=== PATIENT | female | born 1955 | race Caucasian/White ===

== ENCOUNTER → 2016-08-26 | Outpatient (CLI) | payer BC ==
[~2016-08-26] MED LIST: ASPIRIN81 M2 PO; ATORVASTATIN CA10 MG PO; B COMPLEX1 TAB.SA PO; EFFIENT10 MG PO; LEVOTHYROXINE50 MCG PO; LOSARTAN POTASS25 MG PO; MOBIC15 MG PO; NITROSTAT0.4 MG SL; SYNTHROID75 MCG PO; TENORMIN50 MG PO; VIT E PO; VITAMIN D2000 UNIT PO
--- NOTE | ~2016-08-26 | US5 ---
[facility] A Service [facility] RADIOLOGY TEXT RESULTS PATIENT: SHANNAN GUTIERREZ LOCATION: [facility] : 51 UNIT #: [id number] AGE: [address]: BUNNY MCNEILL APRN SEX: F ORDER DR: [id number] [facility] [address] [place], [place] [address] [id number] O MR#: [id number] Acc #: [id number] NAME: SHANNAN GUTIERREZ : 1955 SEX: F STUDY DATE/TIME: 08/26/2016 8:36 UNIT: [facility] ROOM: STUDY DESCRIPTION: US Abdominal Complete Attending Physician: Bunny Mcneill Aprn Ordering Physician: Bunny Mcneill Aprn Primary Care Physician: Malorie Rodríguez M.D. MEDICAL IMAGING REPORT This report is preliminary unless electronic signature is present EXAM Abdominal ultrasound. INDICATION Generalized and right upper quadrant abdominal pain for the past 2 weeks. PROCEDURE Chacko-scale and Doppler imaging of the abdomen. COMPARISON CT from 01/17/2016. FINDINGS Visualized portions of pancreas unremarkable. Apparent right pleural effusion. No liver mass seen on submitted images. Liver measures 12.9 cm. Unremarkable gallbladder. Right kidney measures 10 cm. The common duct measures up to 7 mm. Atherosclerotic irregularity in the abdominal aorta. IVC unremarkable. Left kidney measures 10.2 cm. No hydronephrosis. Spleen measures 9.8 cm. IMPRESSION 1. No clearly acute findings. 2. Atherosclerotic irregularity in the abdominal aorta. 3. Common duct upper limits of normal for the patient's age. 4. Apparent right pleural effusion. Dictated by... Javi Escobar M.D. THIS IS AN ELECTRONICALLY VERIFIED REPORT Javi Escobar M.D. at 08/29/2016 8:22 AM [facility] A Service [facility] RADIOLOGY TEXT RESULTS PATIENT: SHANNAN GUTIERREZ LOCATION: [facility] : 51 UNIT #: [id number] AGE: [address]: BUNNY MCNEILL APRN SEX: F ORDER DR: NORRIS/mackenzie TD: 08/26/2016 10:15 JOB #: [id number] MEDICAL IMAGING REPORT Page 1 of 1 COPY
== END | disposition home or self-care (01) ==
LOC: CWCC 08:14
DX: R10.811 Right upper quadrant abdominal tenderness (principal); I70.0 Atherosclerosis of aorta; J90 Pleural effusion, not elsewhere classified
CPT/HCPCS: 76700

== ENCOUNTER → 2016-09-21 | Outpatient (CLI) | payer BC | END | disposition home or self-care (01) | LOC: CNUC 08-31 09:00 → CRAD 08:02 | DX: R07.9 Chest pain, unspecified (principal); R42 Dizziness and giddiness; R53.83 Other fatigue; I10 Essential (primary) hypertension | CPT/HCPCS: 78452; 93017; A9500 ==

== ENCOUNTER → 2016-09-21 | Outpatient (CLI) | payer BC ==
--- NOTE | ~2016-09-21 | TH ---
Unit #: [id number] #: [id number] Patient: SHANNAN GUTIERREZ [id number] [address] [place], [place] [address] [id number] O MR#: [id number] NAME: SHANNAN GUTIERREZ : 1955 SEX: F STUDY DATE/TIME: 09/21/2016 UNIT: [facility] ROOM: STUDY DESCRIPTION: Attending Physician: Cyndi Saucedo A.P.R.N. Referring Physician: Cyndi Saucedo A.P.R.N. Primary Care Physician: Malorie Rodríguez M.D. CARDIOLOGY REPORT EXAM Exercise Cardiolite stress test, nuclear portion. PROCEDURE Using technetium 99m labeled Cardiolite, rest and stress SPECT images were obtained. Multiple SPECT images were obtained in various views including horizontal and vertical long axis and short axis views of the left ventricle. Images were obtained by gated SPECT method. The patient was administered 12 mCi of Cardiolite at rest. Patient was administered 34.1 mCi of Cardiolite at peak exercise. Total exercise time is six minutes. On the stress images, there is normal perfusion noted. The rest images showed normal perfusion. Comparing rest and stress images, there is no stress-induced ischemia noted. The left ventricular ejection fraction is calculated to be 72%. There is no focal wall motion abnormality seen. CONCLUSION 1. No stress-induced ischemia noted. 2. The left ventricular ejection fraction is calculated to be 72%. 3. There is no focal wall motion abnormality seen. 4. Normal exercise Cardiolite stress test. Dictated by... Jerardo Bose TD: 09/21/2016 14:35 JOB #: [id number] CARDIOLOGY REPORT Page 1 of 1 X Maribel Israel MD <ELECTRONICALLY SIGNED> 11/19/16 1429 CARDIOLOGY REPORT
--- NOTE | ~2016-09-21 | ST ---
Unit #: [id number] #: [id number] Patient: SHANNAN GUTIERREZ [id number] [address] [address] [id number] O MR#: [id number] NAME: SHANNAN GUTIERREZ : 1955 SEX: F STUDY DATE/TIME: [facility] ROOM: STUDY DESCRIPTION: Stress Test Attending Physician: Cyndi Saucedo A.P.R.N. Referring Physician: Cyndi Saucedo A.P.R.N. Primary Care Physician: Malorie Rodríguez M.D. CARDIOLOGY REPORT EXAM Exercise Cardiolite Stress Test DESCRIPTION Baseline EKG - normal sinus rhythm with ventricular rate 86 beats/minute, mild left atrial abnormality, slow R wave progression, left ventricular hypertrophy, frequent premature atrial contractions. The patient walked on the treadmill for 6 minutes utilizing Duncan protocol achieving a workload of 7.0 METs. 102% of maximum target heart rate achieved at 162 beats/minute with maximum blood pressure response of 182/82 mmHg. It was noted the patient had some 0.[address] depression in inferior lateral leads, otherwise nothing acute. Patient had frequent premature atrial contractions. The patient had no complaints of chest pain, palpitations or dizziness. Had increased shortness of breath and fatigueness which resolved in recovery phase. It was noted at the end of recovery phase, the patient's blood pressure decreased down to 162/82 mmHg. EKG during the test showed a 0.[address] depression in inferior lateral leads with frequent premature atrial contractions and a rare premature ventricular contraction. The patient had a fairly poor exercise tolerance, only walked 6 minutes. Cardiolite was injected at maximum target heart rate. Radionuclide test pending. Please correlate with nuclear images. Dictated by... Cyndi aSucedo A.P.R.N. for Jerardo Bose/shavon TD: 09/21/2016 12:16 Unit #: [id number] #: [id number] Patient: SHANNAN GUTIERREZ JOB #: [id number] CARDIOLOGY REPORT Page 1 of 1 X Cyndi Saucedo APRN CARDIOLOGY REPORT
--- NOTE | ~2016-09-21 | CR63 ---
[facility] A Service of [facility] RADIOLOGY TEXT RESULTS PATIENT: SHANNAN GUTIERREZ LOCATION: [facility] : 51 UNIT #: [id number] AGE: [address]: Cyndi Saucedo APRN SEX: F ORDER DR: [id number] [facility] [address] [place], [place] [address] [id number] O MR#: [id number] Acc #: [id number] NAME: SHANNAN GUTIERREZ : 1955 SEX: F STUDY DATE/TIME: 09/21/2016 11:39 UNIT: [facility] ROOM: STUDY DESCRIPTION: CR Chest 2 View Attending Physician: Cyndi Saucedo A.P.R.N. Referring Physician: Cyndi Saucedo A.P.R.N. Ordering Physician: Cyndi Saucedo A.P.R.N. Primary Care Physician: Malorie Rodríguez M.D. MEDICAL IMAGING REPORT This report is preliminary unless electronic signature is present EXAM Chest 09/21/2016. [facility] HISTORY 60-year-old woman with right pleural effusion, short of air. COMPARISON: Chest 01/17/2016, abdominal ultrasound 08/26/2016 FINDINGS Two-view chest demonstrates normal cardiac size and configuration. Minimal calcific plaquing is noted in the arch. Bilateral lungs are hyperinflated with no infiltrates. Costophrenic angles are clear with no convincing evidence for a pleural effusion. I see no lung infiltrates or lung mass. Bony thorax appears negative. IMPRESSION Generalized pulmonary hyperinflation. No convincing evidence for pleural effusion. Dictated by... Aydin Dean M.D. THIS IS AN ELECTRONICALLY VERIFIED REPORT Aydin Dean M.D. at 09/21/2016 3:51 PM JORGE/alivia TD: 09/21/2016 14:51 JOB #: [id number] MEDICAL IMAGING REPORT Page 1 of 1 COPY
== END | disposition home or self-care (01) ==
LOC: CRAD 11:14
DX: J90 Pleural effusion, not elsewhere classified (principal); R91.8 Other nonspecific abnormal finding of lung field
CPT/HCPCS: 71020